=== PATIENT | female | born 1980 | race Caucasian/White ===

== ENCOUNTER 2020-03-10 20:32 | Emergency (ER) | payer BC, OTHER ==
[~2020-03-10] VITALS: Ht 157.5 cm; Wt 77.1 kg
[~2020-03-10 20:32] MED LIST: ASPI-1169 PO; PREN1TAB59 PO
[2020-03-10 20:39] VITALS: BP 124/102
--- NOTE | 2020-03-10 21:39 | NUR ---
Patient discharged to home in stable condition. Written and verbal after care instructions given. Patient verbalizes understanding of instruction.pt. ambulatory with a steady gait
== END 2020-03-10 21:39 | disposition home or self-care (01) ==
LOC: ER 20:39
DX: M79.671 Pain in right foot (principal); Z98.890 Other specified postprocedural states; Z79.82 Long term (current) use of aspirin; Z79.899 Other long term (current) drug therapy
CPT/HCPCS: 73630-TC